=== PATIENT | female | born 1995 | race Two or more races ===

== ENCOUNTER 2017-04-26 08:29 | Day surgery (SDC) | payer BC ==
[~2017-04-26 08:29] MED LIST: PROPOFOL INJ 200 MG/20 ML VIAL IV ONE
[2017-04-26 10:03] VITALS: BP 97/68
--- NOTE | 2017-04-26 13:08 | Operative Report ---
Operative Report DATE OF SURGERY: 04/26/17 Operative Report: The risks, benefits and alternatives of the procedure including risks of bleeding, perforation requiring surgery are explained to the patient in detail and informed consent is obtained. Patient is brought back to the endoscopy suite and placed in the left, lateral decubital position. A rectal examination is done which did not reveal any masses, tears or fissures. Timeout was called. Propofol medications administered. The scope was then carefully advanced all the way to the cecum. The cecum was identified by the usual anatomical landmarks including the ileocecal valve as well as appendiceal office. Photodocumentation was obtained. The scope was then sequentially pulled back via the various segments of the colon including the ascending colon , hepatic flexure, transverse colon, splenic flexure, descending colon and to the rectosigmoid portions of the colon. Retroflexion maneuver was performed. PREOPERATIVE DIAGNOSIS: Rectal bleeding POSTOPERATIVE DIAGNOSIS: Mild inflammation noted in the rectum status post biopsy. Internal hemorrhoids OPERATION: Colonoscopy with biopsy SURGEON: MARIANO ROSARIO ANESTHESIA: LMAC TISSUE REMOVED OR ALTERED: Rectal mucosal specimen obtained to rule out ulcerative colitis COMPLICATIONS: None. ESTIMATED BLOOD LOSS: None. INTRAOPERATIVE FINDINGS: As described above. PROCEDURE: Patient tolerated the procedure well. No immediate postprocedure complications are noted. Patient discharged in good condition. Discharge date 04/26/2017. Discharge diet: Regular. Discharge activity: Regular. 2-3 week follow-up to discuss findings. We will wait on pathology. Patient is instructed to call the office or proceed to the emergency room should there be any further problems or questions.
== END 2017-04-26 09:58 | disposition home or self-care (01) ==
LOC: END 08:29
PROVIDERS: ATTEND Internal Medicine Gastroenterology
PROC: 0DBP8ZX Excision of Rectum, Via Natural or Artificial Opening Endoscopic, Diagnostic (ICD-10-PCS; principal; 2017-04-26 10:00)
DX: K52.9 Noninfective gastroenteritis and colitis, unspecified (principal); K64.8 Other hemorrhoids; K62.5 Hemorrhage of anus and rectum; F17.210 Nicotine dependence, cigarettes, uncomplicated; Z79.899 Other long term (current) drug therapy
CPT/HCPCS: 45380; 88305 ×2; J2704; 810